=== PATIENT | male | born 1985 | race Caucasian/White ===

== ENCOUNTER 2016-09-02 13:24 | Emergency (ER) | payer SELFPAY ==
[2016-09-02 17:08] VITALS: BP 133/76
== END 2016-09-02 17:08 | disposition home or self-care (01) ==
LOC: ED 13:24
DX: M53.3 Sacrococcygeal disorders, not elsewhere classified (principal)

== ENCOUNTER 2018-05-23 12:14 | Emergency (ER) | payer MEDICAID ==
[~2018-05-23] VITALS: Ht 180.3 cm; Wt 77.1 kg
[2018-05-23 12:24] VITALS: BP 134/68; Ht 180.3 cm; Wt 77.1 kg
== END 2018-05-23 13:54 | disposition home or self-care (01) ==
LOC: ED 12:14
DX: S20.212A Contusion of left front wall of thorax, initial encounter (principal); W18.30XA Fall on same level, unspecified, initial encounter; Y93.66 Activity, soccer; Y92.322 Soccer field as the place of occurrence of the external cause; Y99.8 Other external cause status
CPT/HCPCS: J1885

== ENCOUNTER 2019-10-26 11:52 | Emergency (ER) | payer MEDICAID ==
[~2019-10-26] VITALS: Ht 180.3 cm; Wt 79.4 kg
[2019-10-26 12:05] VITALS: Ht 180.3 cm; Wt 79.4 kg
[2019-10-26 12:54] VITALS: BP 119/68
== END 2019-10-26 12:54 | disposition home or self-care (01) ==
LOC: ED 11:52
DX: K40.90 Unilateral inguinal hernia, without obstruction or gangrene, not specified as recurrent (principal)